=== PATIENT | male | born 1990 | race Caucasian/White ===

== ENCOUNTER 2019-02-25 11:19 | Emergency (ER) | payer OTHER ==
[~2019-02-25] VITALS: Ht 182.9 cm; Wt 72.6 kg
[2019-02-25] MEDS ORDERED: PRILOSEC OTC20 MG PO (12:02)
[2019-02-25] MEDS ORDERED: IBUPROFEN 600600 M1 PO (13:21)
[2019-02-25 14:05] VITALS: BP 148/86
== END 2019-02-25 14:05 | disposition home or self-care (01) ==
LOC: ER 11:19
DX: S81.812A Laceration without foreign body, left lower leg, initial encounter (principal); K21.9 Gastro-esophageal reflux disease without esophagitis; W20.8XXA Other cause of strike by thrown, projected or falling object, initial encounter; Y93.89 Activity, other specified; Y92.89 Other specified places as the place of occurrence of the external cause; Y99.0 Civilian activity done for income or pay

== ENCOUNTER → 2020-12-21 | Outpatient (CLI) | payer OTHER ==
[~2020-12-21] MED LIST: IBUPROFEN 600600 M1 PO; PRILOSEC OTC20 MG PO
== END ==
LOC: SJCVCIMAG 07:05
PROVIDERS: ATTEND Internal Medicine
DX: R07.9 Chest pain, unspecified (principal); R06.00 Dyspnea, unspecified; R42 Dizziness and giddiness; K21.9 Gastro-esophageal reflux disease without esophagitis; Z79.899 Other long term (current) drug therapy